=== PATIENT | female | born 2000 ===

== ENCOUNTER → 2018-08-04 15:33 | Emergency (ER) | payer OTHER ==
--- NOTE | 2018-08-04 16:20 | ED ---
Psychiatric Complaint - HPI Summary HPI Summary: This pt is a 17 y/o female presenting to [facility] via EMS for depression. Pt reports she had a mental break down today and told her friend about it. She states recent stressor of school work. Pt states that when she is very stressed out she tends to cut herself. She denies cutting today, she last cut last week on her right wrist. Pt notes she has never needed stitches for self inflicted cuts in the past. She does have prior suicide attempts, last year while in high school she tried to hang herself. Denies dysuria, diarrhea, abd pain. She used to take medications 1 year ago for depression but is no longer taking them. Pt is seeing a therapist at [facility], but didn't get a chance to let them know she's in the ED today. Denies chance of . Pt does not take any medications including any vitamins. Denies tobacco, alcohol, drug use. She is a student at [employer] and home is in [place], [place]. Patient medication reviewed this visit. - History Of Current Complaint Chief Complaint: EDMentalHealth Time Seen by Provider: 08/04/18 15:52 Hx Obtained From: Patient Onset/Duration: Lasting Days, Still Present Timing: Days Severity Currently: Moderate Character: Depressed Aggravating Factor(s): Recent Stress Alleviating Factor(s): Nothing Associated Signs And Symptoms: Positive: Negative Related History: Positive For: Prior Psychiatric Issues Has Suicidal: Reports: Thoughts, Has Prior Attempt(s) Recent Stressor(s): school work - Allergies/Home Medications Allergies/Adverse Reactions: Allergies Allergy/AdvReac Type Severity Reaction Status Date / Time No Known Allergies Allergy Verified 08/04/18 15:45 Home Medications: Home Medications NK [No Home Medications Reported] 08/04/18 [History Confirmed 08/04/18] PMH/Surg Hx/FS Hx/Imm Hx Previously Healthy: Yes Endocrine/Hematology History: Denies: Hx Diabetes Cardiovascular History: Denies: Hx Hypertension Psychiatric History: Reports: Hx Depression - Surgical History Surgery Procedure, Year, and Place: None Infectious Disease History: No Infectious Disease History: Denies: Traveled Outside the [place] in Last 30 Days - Family History Known Family History: Positive: Non-Contributory - Social History Occupation: Student - at [employer] Lives: Dormitory/Roommates Alcohol Use: None Substance Use Type: Reports: None Smoking Status (MU): Never Smoked Tobacco Review of Systems Negative: Fever Cardiovascular: Negative Respiratory: Negative Negative: Abdominal Pain, Diarrhea Negative: dysuria Positive: Other - superficial cutting Psychological: Other - POSITIVE: SI thoughts, stress Positive: Depressed All Other Systems Reviewed And Are Negative: Yes Physical Exam - Summary Physical Exam Summary: Vital Signs Reviewed: Yes A+Ox3, no distress Eyes: Conjunctiva Clear, ENT: Hearing grossly normal mmoist, Neck: Positive: Supple Respiratory: Positive: No respiratory distress, No accessory muscle use + CTA throughout no w/r Cardiovascular: RRR nl s1, s2 no m/r CBT <2 sec abd soft + BS nt/nd no guarding, no distension Musculoskeletal Exam: [id number] x 4 without difficulty Strength Intact, ROM Intact Neurological: Positive: Alert, + sensation throughout Psychological: Positive: Normal Response To Family Skin: Positive: no rash, no ecchymosis, superficial, healing wounds to arms Triage Information Reviewed: Yes Vital Signs On Initial Exam: Initial Vitals Temp Pulse Resp BP Pulse Ox 99.2 F 104 16 119/72 99 08/04/18 15:40 08/04/18 15:40 08/04/18 15:40 08/04/18 15:40 08/04/18 15:40 Diagnostics - Vital Signs Vital Signs Temp Pulse Resp BP Pulse Ox 08/04/18 15:40 99.2 F 104 16 119/72 99 - Laboratory Result Diagrams: 08/04/18 16:45 08/04/18 16:45 Lab Statement: Any lab studies that have been ordered have been reviewed, and results considered in the medical decision making process. Course/Dx - Course Course Of Treatment: Patient presents to ED with thoughts of increasing depression and thoughts of self-harm. Patient states has considered suicide. Patient told a friend who got her help. Patient states she's not been anything to try to commit suicide. Patient's itches and a lot of pressure was school and exams. Patient states she has a history of self cutting and has recently dominant. Patient's tetanus is up-to-date. Patient not currently medicated for depression. Patient states she did attempt to contact her herself by hanging when she was in high school. Patient states her parents are not aware of her current thoughts does not she's at the hospital. Patient declined an offer for her to contact them. Patient does have some superficial wounds. Tetanus is up-to-date. We'll check labs as per mental health evaluation. - Differential Dx/Clinical Impression Provider Diagnosis: Depression Discharge - Sign-Out/Discharge Documenting (check all that apply): Sign-Out Patient Signing out patient TO: Festus King - pending MHE Patient Received Moderate/Deep Sedation with Procedure: No - Discharge Plan Condition: Stable Disposition: HOME Patient Education Materials: Depression (ED) Referrals: [facility] [Outside] Additional Instructions: PLEASE RETURN TO THE ED TO IMMEDIATELY FOR WORSENING OR CONCERNING SYMPTOMS. - Billing Disposition and Condition Condition: STABLE Disposition: Home - Attestation Statements Document Initiated by Scribe: Yes Documenting Scribe: Shaniqua Campos Provider For Whom Scribe is Documenting (Include Credential): Rosalinda Velasquez MD Scribe Attestation: Shaniqua Yuan, scribed for Rosalinda Velasquez MD on 08/06/18 at 2020. Scribe Documentation Reviewed: Yes Provider Attestation: The documentation as recorded by the Shaniqua cuoghlin accurately reflects the service I personally performed and the decisions made by , Rosalinda Velasquez MD Status of Scribe Document: Viewed
[2018-08-04 16:52] LABS: ABS Basophils 0 10^3/ul (0-0.2); ABS Eosinophils 0.1 10^3/ul (0-0.6); ABS Lymphocytes 2.5 10^3/ul (1.0-4.8); ABS Monocytes 0.4 10^3/ul (0-0.8); ABS Neutrophils 5.5 10^3/ul (1.5-7.7); ABS Nucleated RBC 0 10^3/ul; Eosinophil % 0.7 %; Hematocrit 39 % (33-41); Hemoglobin 13.4 g/dL (12.0-16.0); Lymphocyte % 29.3 %; Mean Corpuscular HGB Conc 35 g/dL (31-36); Mean Corpuscular Hemoglobin 32 pg (27-31); Mean Corpuscular Volume 91 fL (80-97); Mean Platelet Volume 7.4 fL (7.4-10.4); Nucleated Red Blood Cells % 0.1; Platelet Count 304 10^3/uL (150-450); Red Blood Count 4.24 10^6 /uL (3.70-4.87); Red Cell Distribution Width 12 % (10.5-15); White Blood Count 8.5 10^3/uL (3.5-10.8)
[2018-08-04 16:53] LABS: Urine Appearance Cloudy; Urine Bacteria 1+ (Absent); Urine Bilirubin Negative (Negative); Urine Blood Negative (Negative); Urine Color Yellow; Urine Glucose Negative (Negative); Urine Ketones Negative (Negative); Urine Nitrite Negative (Negative); Urine Protein Negative (Negative); Urine Red Blood Cell Trace(0-2/hpf) (Absent); Urine Squamous Epithelial Cell Present (Absent); Urine Urobilinogen Negative (Negative); Urine White Blood Cell Trace(0-5/hpf) (Absent)
[2018-08-04 17:03] LABS: Barbiturates Urine Screen None Detected (None Detect); Benzodiazepine Urine Screen None Detected (None Detect); Urine Cannabinoids Screen None Detected (None Detect)
[2018-08-04 17:04] LABS: Albumin 4.2 g/dL (3.2-5.2); Anion Gap 11 mmol/L (2-11); CO2 Carbon Dioxide 21 mmol/L (22-32); Calcium 9.5 mg/dL (8.6-10.3); Chloride 106 mmol/L (101-111); Potassium 3.8 mmol/L (3.5-5.0); Sodium 138 mmol/L (135-145)
[2018-08-04 17:10] LABS: ALT 8 U/L (7-52); AST 14 U/L (13-39); Albumin/Globulin Ratio 1.3 (1-3); Alkaline Phosphatase 35 U/L (34-104); BUN/Creatinine Ratio 15.1 (8-20); Blood Urea Nitrogen 13 mg/dL (6-24); EGFR African American 102.9 (>60); Globulin 3.3 g/dL (2-4); Glucose 99 mg/dL (70-100); Total Protein 7.5 g/dL (6.4-8.9)
[2018-08-04 17:22] LABS: HCG Pregnancy < 0.60 mIU/mL
[2018-08-04 17:28] LABS: Acetaminophen < 15 mcg/mL; Alcohol < 10 mg/dL (<10); Salicylate < 2.50 mg/dL (<30)
[2018-08-04 17:42] LABS: TSH (Thyroid Stimulating Horm) 0.94 mcIU/mL (0.34-5.60)
--- NOTE | 2018-08-04 19:07 | ED ---
Progress - Progress Note Progress Note: This patient was signed out from Dr. Velasquez to Dr. King upon shift change, pending MHE. MHE done at [address] Amin. Patient will be discharged with dx of depression and instructions to follow up as an outpatient at [place]. Course/Dx - Course Course Of Treatment: This patient was signed out from Dr. Velasquez to Dr. King upon shift change, pending MHE. MHE done at [address] Amin. Patient will be discharged with dx of depression and instructions to follow up as an outpatient at [place]. - Diagnoses Provider Diagnoses: Depression Discharge - Sign-Out/Discharge Documenting (check all that apply): Patient Departure - discharge Patient Received Moderate/Deep Sedation with Procedure: No - Discharge Plan Condition: Stable Disposition: HOME Patient Education Materials: Depression (ED) Referrals: [facility] [Outside] Additional Instructions: PLEASE RETURN TO THE ED TO IMMEDIATELY FOR WORSENING OR CONCERNING SYMPTOMS. - Attestation Statements Document Initiated by Scribe: Yes Documenting Scribe: Douglas Romero Provider For Whom Scribe is Documenting (Include Credential): Festus King MD Scribe Attestation: Douglas Yuan, scribed for Festus King MD on 08/04/18 at 2038. Status of Scribe Document: Ready
[2018-08-04 20:59] VITALS: BP 125/74
== END | disposition home or self-care (01) ==
LOC: ED 15:33
DX: F32.9 Major depressive disorder, single episode, unspecified (principal); R45.851 Suicidal ideations
CPT/HCPCS: 36415; 80053; 80307; 80320; 80329; 81003; 81015; 84443; 84702; 85025; 87086; 99284; G0480

== ENCOUNTER 2018-08-08 17:14 | Emergency (ER) | payer OTHER ==
--- NOTE | 2018-08-08 17:30 | ED ---
Psychiatric Complaint - HPI Summary HPI Summary: A 17 y/o F brought in by ambulance and campus police presents to ED for MHE. Per [facility] police: Pt has been stalking her ex-boyfriend, today she said called him and said she was going to kill herself, he went over to her dorm and she appeared uninjured and at baseline; he left and she called him again and said she was going to kill herself, so the ex-boyfriend called campus police. In ED, pt is tearful and says she is "scared." She had depression last year and tried medication but says it did not work. She is scheduled to see a psychiatrist next week and would like to start medication again. She is a [employer] student. - History Of Current Complaint Hx Obtained From: Patient, Other: - campus police Onset/Duration: Still Present Timing: Constant Related History: Positive For: Prior Psychiatric Issues - depression Has Suicidal: Reports: Thoughts - Allergies/Home Medications Allergies/Adverse Reactions: Allergies Allergy/AdvReac Type Severity Reaction Status Date / Time No Known Allergies Allergy Verified 08/04/18 15:45 PMH/Surg Hx/FS Hx/Imm Hx Previously Healthy: No Endocrine/Hematology History: Denies: Hx Diabetes Cardiovascular History: Denies: Hx Hypertension Psychiatric History: Reports: Hx Depression Denies: Hx Eating Disorder, Hx of Violent Episodes Against Others - Surgical History Surgery Procedure, Year, and Place: None - Family History Known Family History: Positive: Other - pos: schizophrenia, bipolar - Social History Occupation: Student Lives: Dormitory/Roommates Alcohol Use: None Hx Substance Use: No Substance Use Type: Reports: None Hx Tobacco Use: No Smoking Status (MU): Never Smoked Tobacco Review of Systems Negative: Cough Psychological: Other - pos: made SI threats; tearful; "scared" All Other Systems Reviewed And Are Negative: Yes Physical Exam - Summary Physical Exam Summary: Appearance: The patient is well-nourished in no acute distress and in no acute pain. Skin: The skin is warm and dry and skin color reflects adequate perfusion. HEENT: The head is normocephalic and atraumatic. The pupils are equal and reactive. The conjunctivae are clear and without drainage. Nares are patent and without drainage. Mouth reveals moist mucous membranes and the throat is without erythema and exudate. The external ears are intact. The ear canals are patent and without drainage. The tympanic membranes are intact. Neck: the neck is supple with full range of motion and non-tender. There are no carotid bruits. There is no neck vein distension. Respiratory: Chest is non-tender. Lungs are clear to auscultation and breath sounds are symmetrical and equal. Cardiovascular: Heart is regular rate and rhythm. There is no murmur or rub auscultated. There is no peripheral edema and pulses are symmetrical and equal. Abdomen: The abdomen is soft and non-tender. There are normal bowel sounds heard in all four quadrants and there is no organomegaly palpated. Musculoskeletal: There is no back tenderness noted. Extremities are non-tender with full range of motion. There is good capillary refill. There is no peripheral edema or calf tenderness elicited. Neurological: Patient is alert and oriented to person, place and time. The patient has symmetrical motor strength in all four extremities. Cranial nerves are grossly intact. Deep tendon reflexes are symmetrical and equal in all four extremities. Psychiatric: Labile. Triage Information Reviewed: Yes Vital Signs Reviewed: Yes Diagnostics - Laboratory Result Diagrams: 08/08/18 17:48 08/08/18 17:48 Lab Statement: Any lab studies that have been ordered have been reviewed, and results considered in the medical decision making process. Course/Dx - Course Course Of Treatment: Pt is medically clear for MHE at 1852. Per track watchman: Dr. Martinez, psych, approves patient for discharge at 2012. Dx: depression. - Differential Dx/Clinical Impression Provider Diagnosis: Depression Discharge - Sign-Out/Discharge Documenting (check all that apply): Patient Departure - DC Patient Received Moderate/Deep Sedation with Procedure: No - Discharge Plan Condition: Stable Disposition: HOME Patient Education Materials: Depression (ED), Help Prevent Suicide (ED) Referrals: [facility] [Outside] (Please follow up with [facility] tomorrow as planned) No Primary Care Phys,[facility] [Primary Care Provider] - - Billing Disposition and Condition Condition: STABLE Disposition: Home - Attestation Statements Document Initiated by Scribe: Yes Documenting Scribe: Usman Mayer Provider For Whom Scribe is Documenting (Include Credential): Dr. Eric Bond MD Scribe Attestation: I, Usman Mayer, scribed for Dr. Eric Bond MD on 08/08/18 at 2121. Scribe Documentation Reviewed: Yes Provider Attestation: The documentation as recorded by the scribe, Usman Mayer accurately reflects the service I personally performed and the decisions made by me, Dr. Eric Bond MD Status of Scribe Document: Viewed
[2018-08-08 17:55] LABS: ABS Basophils 0 10^3/ul (0-0.2); ABS Eosinophils 0.1 10^3/ul (0-0.6); ABS Lymphocytes 1.8 10^3/ul (1.0-4.8); ABS Monocytes 0.5 10^3/ul (0-0.8); ABS Neutrophils 7.4 10^3/ul (1.5-7.7); ABS Nucleated RBC 0 10^3/ul; Eosinophil % 0.6 %; Hematocrit 39 % (33-41); Hemoglobin 13.4 g/dL (12.0-16.0); Lymphocyte % 18.7 %; Mean Corpuscular HGB Conc 35 g/dL (31-36); Mean Corpuscular Hemoglobin 31 pg (27-31); Mean Corpuscular Volume 90 fL (80-97); Mean Platelet Volume 7.4 fL (7.4-10.4); Nucleated Red Blood Cells % 0; Platelet Count 315 10^3/uL (150-450); Red Blood Count 4.31 10^6 /uL (3.70-4.87); Red Cell Distribution Width 13 % (10.5-15); White Blood Count 9.8 10^3/uL (3.5-10.8)
[2018-08-08 17:58] LABS: Urine Appearance Cloudy; Urine Bacteria Absent (Absent); Urine Bilirubin Negative (Negative); Urine Blood 2+ (Negative); Urine Color Yellow; Urine Glucose Negative (Negative); Urine Ketones Negative (Negative); Urine Nitrite Negative (Negative); Urine Protein Negative (Negative); Urine Red Blood Cell 2+(6-10/hpf) (Absent); Urine Specific Gravity 1.028 (1.010-1.030); Urine Squamous Epithelial Cell Present (Absent); Urine Urobilinogen Negative (Negative); Urine White Blood Cell Trace(0-5/hpf) (Absent)
[2018-08-08 18:14] LABS: ALT 9 U/L (7-52); AST 13 U/L (13-39); Albumin 4.3 g/dL (3.2-5.2); Albumin/Globulin Ratio 1.3 (1-3); Alkaline Phosphatase 34 U/L (34-104); Anion Gap 7 mmol/L (2-11); BUN/Creatinine Ratio 14.7 (8-20); Barbiturates Urine Screen None Detected (None Detect); Benzodiazepine Urine Screen None Detected (None Detect); Blood Urea Nitrogen 11 mg/dL (6-24); CO2 Carbon Dioxide 24 mmol/L (22-32); Calcium 9.5 mg/dL (8.6-10.3); Chloride 106 mmol/L (101-111); EGFR African American 120.5 (>60); EGFR Non-African American 99.5 (>60); Globulin 3.4 g/dL (2-4); Glucose 112 mg/dL (70-100); Potassium 4.2 mmol/L (3.5-5.0); Sodium 137 mmol/L (135-145); Total Protein 7.7 g/dL (6.4-8.9); Urine Cannabinoids Screen None Detected (None Detect)
[2018-08-08 18:21] LABS: HCG Pregnancy < 0.60 mIU/mL
[2018-08-08 18:47] LABS: Acetaminophen < 15 mcg/mL; Alcohol < 10 mg/dL (<10); Salicylate < 2.50 mg/dL (<30)
[2018-08-08 19:03] LABS: TSH (Thyroid Stimulating Horm) 0.82 mcIU/mL (0.34-5.60)
[2018-08-08 20:53] VITALS: BP 136/94
== END 2018-08-08 20:51 | disposition home or self-care (01) ==
LOC: ED 17:14
DX: F32.9 Major depressive disorder, single episode, unspecified (principal); R45.851 Suicidal ideations
CPT/HCPCS: 36415; 80053; 80307; 80320; 80329; 81003; 81015; 84443; 84702; 85025; 87086; 99284; G0480